=== PATIENT | female | born 1970 | race Caucasian/White ===

== ENCOUNTER 2023-01-11 09:19 | Emergency (ER) | payer OTHER ==
[2023-01-11] MEDS ORDERED: Naloxone 0.4 MG/ML SDV IVPUSH PRN (09:39)
[2023-01-11] MEDS ORDERED: HYDROmorphone 0.5 MG/0.5 ML Syringe IM ONE (09:39)
[2023-01-11] MEDS ORDERED: Ketorolac 30 MG/ML SDV IM ONE (09:39)
== END 2023-01-11 11:34 | disposition home or self-care (01) ==
LOC: JP.ED 09:19
DX: S82.402A Unspecified fracture of shaft of left fibula, initial encounter for closed fracture (principal); X58.XXXA Exposure to other specified factors, initial encounter
CPT/HCPCS: 29515; 73610; 96372; 99284; J1170; J1885; 99282